=== PATIENT | male | born 1955 | race Two or more races ===

== ENCOUNTER 2025-01-24 22:00 | Emergency (ER) | payer MEDICAID ==
[~2025-01-24] VITALS: Ht 149.9 cm; Wt 74.6 kg
[2025-01-24 22:30] VITALS: BP 157/82; PULSE 61; RESP 18; O2SAT 98
--- NOTE | 2025-01-24 23:43 | ED.PDOC ---
Eye-HPI HPI Comments 69 year old male came to ER due to eye problems. Patient has glaucoma on his right eye and has been unable to see on that eye. 3 months ago, patient had surgery on his left eye to relieve the pressure (glaucoma) and tolerated procedure well. At about 5pm today, patient started having blurring/ loss of vision of the left eye. He is now only able to see light/shadows. No eye pain, headache, dizziness, nausea or vomiting noted. Blood pressure upon arrival was 157/82 mmHg. Patient reports he has been taking all medications for glaucoma as prescribed. No foreign body sensation of the eye, no injury to the eye Chief Complaint: Eye Problem Time Seen by MD: 23:38 Reviewed Notes: Nurses Notes Allergies: Coded Allergies: NO KNOWN ALLERGIES (Unverified , 01/24/25) Information Source: Patient Mode of Arrival: Ambulatory Timing: Hours Duration: Since onset Eye Location: Left Vital Signs Vital Signs Date Time Temp Pulse Resp B/P (MAP) Pulse Ox O2 Delivery O2 Flow Rate FiO2 01/24/25 22:30 98.1 61 18 157/82 (107) 98 Review of Systems REVIEW OF SYSTEMS: No fever, no chills, or fatigue HEENT: No sore throat, no earache, no congestion, no neck pain. (+) left eye blurred vision Cardiac: No chest pain. No palpitations. Lungs: No shortness of breath, no cough. GI: No nausea, no vomiting, no diarrhea, no constipation, no abdominal pain : No dysuria, frequency, or urgency. No hematuria. Musculoskeletal: No joint pain , no joint swelling, no extremity edema. Skin: No rash, no itching. Neuro: No headache, no dizziness, no weakness General: Awake, alert and oriented. No acute distress. Skin: Skin in warm, dry and intact without rashes or lesions. EYE: BILATERAL CONJUNCTIVAL INJECTION. EXTRAOCULAR MOVEMENTS INTACT. PATIENT UNABLE TO SEE COLOR, ABLE TO SEE SHADOWS/LIGHT. HE REPORTS EVERYTHING LOOKS BEIGE Neck: Normal range of motion. No JVD. Cardiac: Regular rate Respiratory: No signs of respiratory distress. No Stridor. Extremities: Upper and lower extremities are atraumatic in appearance without tenderness or deformity. Neurological: The patient is awake, alert and oriented to person, place, and time with normal speech. Speech is clear. There is no facial asymmetry. Psychiatric: Appropriate mood and affect. Good judgement and insight. No visual or auditory hallucinations. No suicidal or homicidal ideation. Past Medical History PAST MEDICAL HISTORY: HTN Past Medical History (Other): Glaucoma Surgical History: Denies all surgeries Family History Family History: Reviewed,noncontributory to illness Social History Smoker: Non-Smoker Alcohol: Denies ETOH Use Drugs: Denies Drug Use Lives In: Home Was a procedure done? Was a procedure done?: No EENT DIFF Eye: Viral, Glaucoma, Globe Rupture, Retinal Artery Occlusion, Retinal Vein Occlusion, Other (RETINAL DETACHMENT) X-Ray, Labs, Meds, VS Vital Signs Date Time Temp Pulse Resp B/P (MAP) Pulse Ox O2 Delivery O2 Flow Rate FiO2 01/24/25 22:30 98.1 61 18 157/82 (107) 98 Time of 1ST Reevaluation: 23:25 Reevaluation 1ST: Unchanged Patient Education/Counseling: Diagnosis, Treatment Family Education/Counseling: Diagnosis, Treatment Departure 1 Departure Time of Disposition: 03:59 Impression: Primary Impression: Vision loss Disposition: 07 LEFT AWOL/ELOPED Condition: Stable Comments 69-YEAR-OLD MALE PRESENTED TO THE EMERGENCY DEPARTMENT WITH WORSENING PAINLESS LEFT EYE VISION SINCE 5:00 P.M. THIS EVENING. PATIENT WAS UNABLE TO SEE COLOR, HE WAS ABLE TO SEE SOME SHADOWS AND LIGHT. DISCUSSED WITH PATIENT AND DAUGHTER LIMITED OPHTHALMOLOGIC EVALUATION AVAILABLE AT THIS FACILITY. OFFERED EYE EXAM, IMAGING HOWEVER PATIENT AND DAUGHTER ELOPED PRIOR TO COMPLETING EVALUATION. Critical Care Note Critical Care Time?: No Stability Stability form required: No Heart Score Heart Score: Heart Score Response (Comments) Value History N/A 0 EKG N/A 0 Age N/A 0 Risk Factors N/A 0 Troponin N/A 0 Total 0 I personally scribed for EVELYN PERKINS MD ([email or web address]) on 01/24/25 at 23:43. Electronically submitted by Elijah Mederos ([email or web address]). EVELYN PERKINS MD Jan 24, 2025 23:43
== END 2025-01-25 01:11 | disposition home or self-care (01) ==
LOC: ER 22:00
DX: H54.62 Unqualified visual loss, left eye, normal vision right eye (principal); I10 Essential (primary) hypertension; H40.89 Other specified glaucoma